=== PATIENT | male | born 1935 | race Caucasian/White ===

== ENCOUNTER 2017-05-06 07:18 | Emergency (ER) | payer MEDICARE, OTHER ==
--- NOTE | 2017-05-06 07:38 | ERNOTE ---
<Redd Siegel - Last Filed: 05/06/17 08:06> Dyspnea - General Presenting Symptoms: shortness of breath Time Seen by Provider: 05/06/17 07:24 Source: EMS, [facility] records Exam Limitations: clinical condition, dementia, other - previous CVA - Immun/Allergies/Home Medications Allergies/Adverse Reactions: Allergies cimetidine Allergy (Verified 05/06/17 07:37) Home Medications: HOME MEDICATIONS Acetaminophen [Tylenol] 650 mg PO Q6H 05/06/17 [Last Taken Unknown] Albuterol Sulfate [Proventil Hfa] 6.7 gm IH Q6H 05/06/17 [Last Taken Unknown] Albuterol Sulfate/Ipratropium [Duoneb 2.5-0.5MG/3ML Soln] 3 ml IH QID 05/06/17 [ Last Taken Unknown] Aspirin [Aspirin Enteric Coated] 81 mg PO DAILY 05/06/17 [Last Taken Unknown] Carvedilol [Coreg] 6.25 mg PO BID 05/06/17 [Last Taken Unknown] Docusate Sodium [Doc-Q-Lace] 100 mg PO BID 05/06/17 [Last Taken Unknown] Ferrous Sulfate [Ferrous Sulfate Elixir] 60 ml PO DAILY 05/06/17 [Last Taken Unknown] Fluticasone/Salmeterol [Advair 100-50 Diskus] 1 puff IH BID 05/06/17 [Last Taken Unknown] Furosemide [Lasix] 40 mg PO DAILY 05/06/17 [Last Taken Unknown] Ipratropium [place] [Atrovent Hfa] 2 puff IH QID 05/06/17 [Last Taken Unknown] Lisinopril [Qbrelis] 40 mg PO DAILY 05/06/17 [Last Taken Unknown] Magnesium Hydroxide [Milk Of Magnesia] 30 ml PO DAILY PRN 05/06/17 [Last Taken Unknown] Melatonin [Melatin] 3 mg PO DAILY 05/06/17 [Last Taken Unknown] Omeprazole [Prilosec] 20 mg PO DAILY 05/06/17 [Last Taken Unknown] Polyethylene Glycol 3350 [Miralax] 17 gm PO DAILY 05/06/17 [Last Taken Unknown] Sennosides [Senna] 8.8 mg PO BID 05/06/17 [Last Taken Unknown] Simvastatin [Zocor] 20 mg PO DAILY 05/06/17 [Last Taken Unknown] Tamsulosin HCl [Flomax] 0.4 mg PO DAILY 05/06/17 [Last Taken Unknown] - History of Present Illness Narrative: Pt has a G-tube and was getting medications with water to flush them in. Pt appeared to have aspirated some stomach contents and began to be short of breath immediately after this feeding. [facility] staff put him on O2 at 2 l/nc. Pt continued to appear short of breath and EMS was called. In the ambulance the patient remained on 2l of O2 and continued to have SaO2 in the upper 90%. 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 Pt unable to answer questiosn - Review of Systems Constitutional: Absent: recent illness Respiratory: Present: See HPI Gastrointestinal/Abdominal: Present: other - possible reflux and aspiration due to G-tube feeding Neurological: Present: pre-existing deficit - due to large CVA, G-tube due to dysphagia Physical Exam - Physical Exam General Appearance: Present: wd/wn, alert, no apparent distress, lethargic, thin Head Exam: Present: normal inspection, no evidence of injury Ears, Nose, Throat: Present: dry mucous membranes, other - No gag reflex Respiratory: Present: rhonchi - initially moderate but reduced to occasional after a short time in the ED. Cardiovascular/Chest: Present: no murmur, bradycardia Gastrointestinal/Abdominal: Present: normal bowel sounds, nondistended, soft, other - PEG tube present Extremity Exam: Present: no edema, other - bilateral hallux valgus, long distrophic toenails. Neurological Exam: Present: motor weakness - left side due to previous CVA. , other - answers simple yes/no questions Skin Exam: Present: normal color, warm/dry - scaley on LE without erythema. Lymphatic Exam: Present: no adenopathy ED Progress - Transfer of Care Physician Sign Out: Redd Siegel Receiving Physician: Darshan Soto Pending Results: Labs, X-ray results Expected Disposition: Discharge Departure Clinical Impression: Dyspnea Qualifiers: Dyspnea type: other forms of dyspnea Qualified Code(s): R06.09 - Other forms of dyspnea Aspiration pneumonia Qualifiers: Aspiration pneumonia type: due to gastric secretions Laterality: right Lung location: middle lobe of lung Qualified Code(s): J69.0 - Pneumonitis due to inhalation of food and vomit - Departure Disposition: Home self-care Condition: Good Instructions: Aspiration Pneumonia <Darshan Soto - Last Filed: 05/06/17 09:23> ED Progress - Vital Signs Vital Signs: Vital Signs 05/06/17 05/06/17 05/06/17 07:20 07:52 08:06 Temperature 36.0 C L Pulse Rate 56 L 52 L 63 Respiratory 24 H 14 20 Rate Blood Pressure 110/65 101/65 135/53 O2 Sat by Pulse 100 99 95 Oximetry 05/06/17 05/06/17 08:33 09:00 Temperature Pulse Rate 60 68 Respiratory 14 16 Rate Blood Pressure 117/61 125/63 O2 Sat by Pulse 99 98 Oximetry Plan - Plan Plan: Patient appears to have an aspiration pneumonia in the right middle lobe. As the patient is being fed only from the G-tube and he was fluid overloaded getting his morning medication which induced the aspiration I'm going to give him 1 g of Rocephin IM and he will get that every day for one week and repeat chest x-ray were done at that time. Patient is currently in a [facility] and I think would benefit from antibiotics for this aspiration pneumonia.
[2017-05-06 07:41] LABS: Hematocrit 38.4 % (42.0-52.0); Hemoglobin 11.3 gm/dL (13.5-18.0); Mean Cell Volume 82.1 fl (78-100); Mean Corpuscular Hemoglobin 24.1 pg (27-31); Mean Corpuscular Hgb Conc 29.4 g/dl (32-36); Mean Platelet Volume 11.1 fl (6.0-9.5); Neutrophil # 5.5 K/mm3 (1.3-6.0); Neutrophil % 67.7 % (42-75.0); Platelet Count 165 K/mm3 (150-450); Red Blood Count 4.68 M/mm3 (4.7-6.0); Red Cell Distribution Width 17.2 % (11.5-14.0); White Blood Count 8.1 K/mm3 (4.0-10.5)
[2017-05-06 07:52] LABS: Albumin * 2.8 gm/dl (3.4-5.0); Anion Gap 4.5 mmol/L (6.8-13.8); BUN/Creatinine Ratio 45.3 (9.0-21.6); Bilirubin, Total 0.7 mg/dL (0.0-1.1); Ca. Corrected For Albumin 9.3 mg/dL (8.4-10.2); Calcium * 8.7 mg/dL (7.9-10.9); Carbon Dioxide 37.7 mmol/L (24-32.6); Potassium 4.2 mmol/L (3.4-4.6); Total Protein 6.4 gm/dL (6.2-8.2)
[2017-05-06 09:28] VITALS: BP 144/88
== END 2017-05-06 09:53 ==
LOC: ER 07:18
DX: R06.09 Other forms of dyspnea (principal); J69.0 Pneumonitis due to inhalation of food and vomit